=== PATIENT | male | born 1945 | race Caucasian/White ===

== ENCOUNTER → 2018-08-25 13:24 | Outpatient (CLI) | payer MEDICARE, SELFPAY ==
--- NOTE | 2018-08-25 13:34 | VDLE_ITS ---
Reason For Study: edema RIGHT LEFT CFV is compressible, spontaneous, phasic, CFV is compressible, spontaneous, phasic, competent and demonstrates normal competent, and demonstrates normal augmentation. augmentation. FV is compressible, spontaneous, phasic, FV is compressible, spontaneous, phasic, competent and demonstrates normal competent and demonstrates normal augmentation. augmentation. POP V is compressible, spontaneous, phasic, POP V is compressible, spontaneous, phasic, competent and demonstrates normal competent and demonstrates normal augmentation. augmentation. T/P Trunk is compressible. T/P Trunk is compressible. PTV is compressible. PTV is compressible. RT PerV is compressible. LT PerV is compressible. Short segment of the GSV at the knee is GSV is normal. noncompressible. GSV is not dilated. Procedure Exam performed in department. The exam was diagnostic. A preliminary report was called and/or faxed to Dr. Alvarez's office. Interpretation Summary Deep veins of the lower extremities are bilaterally patent and compressible segmentally. There is no evidence of deep vein thrombosis on either side. Valvular competence appears intact within the proximal deep venous systems bilaterally. Subacute thrombosis is noted in a short segment of the right greater saphenous vein at knee level. The left greater saphenous vein appears patent and compressible segmentally. Ordering Physician: Dahlia Alvarez Performed By: David Escobar RVT
== END ==
PROVIDERS: Family Provider Internal Medicine; PCP Internal Medicine; Referring Provider Internal Medicine; Visit Provider Internal Medicine
DX: R60.0 Localized edema (principal)
CPT/HCPCS: 93970

== ENCOUNTER → 2018-08-31 13:38 | Outpatient (CLI) | payer MEDICARE, SELFPAY ==
--- NOTE | 2018-08-31 13:54 | ECHOD_ITS ---
Reason For Study: BILAT LEG EDEMA Procedure This was a 2D Doppler, Color Flow transthoracic echocardiogram. Exam performed in department. Left Ventricle Normal LV size. Left ventricular systolic function is normal. The estimated ejection fraction is 65 %. Stage 1 diastolic dysfunction. No regional wall motion abnormalities noted. Right Ventricle Normal RV size. Normal systolic function. Atria Normal left atrium. Normal right atrium. Mitral Valve Normal mitral valve. Trivial eccentric mitral valve insufficiency. Tricuspid Valve Normal tricuspid valve. Mild tricuspid valve insufficiency. Aortic Valve Normal aortic valve. Mild (1+) eccentric aortic valve insufficiency. Pulmonic Valve Normal pulmonic valve. Great Vessels Normal aortic root. The pulmonary artery is normal size. Normal inferior vena cava. Pericardium/Pleural No pericardial effusion. Medication 22 gauge I.V. with prn adaptor inserted into right arm. Performed a rapid injection of agitated mix of 9 cc saline and 1cc air to assess for atrial septal defect. MMode/2D Measurements & Calculations LVIDd: 4.0 cm IVSd: 0.94 cm Ao root diam: 3.3 cm LVIDs: 2.6 cm LVPWd: 0.82 cm RVDd: 3.7 cm FS: 35.6 % LAV(MOD-bp): 31.6 ml LVAd ap4: 28.9 cm2 SV(MOD-sp4): 55.0 ml LAV(MOD-bp) Indexed: 15.5 ml/m2 EDV(MOD-sp4): 82.4 ml LAV(MOD-sp2): 39.9 ml EDV(sp4-el): 86.7 ml LAV(MOD-sp4): 25.3 ml LVAs ap4: 14.7 cm2 ESV(MOD-sp4): 27.5 ml ESV(sp4-el): 28.6 ml EF(MOD-sp4): 66.7 % EF(sp4-el): 67.0 % SV(sp4-el): 58.1 ml LA A4 area: 11.9 cm2 LA dimension(2D): 3.0 cm RA A4 area: 14.6 cm2 Time Measurements MV dec time: 0.20 sec Doppler Measurements & Calculations MV E max garland: 68.8 cm/sec Lat Peak E' Gar[place]: 9.2 cm/sec Med Peak E' Gar[place]: 9.4 cm/sec MV A max garland: 79.7 cm/sec E/E' lat: 7.4 E/E' med: 7.3 MV E/A: 0.86 Ao V2 max: 124.4 cm/sec AI max garland: 405.5 cm/sec LV V1 max: 118.8 cm/sec Ao max P.2 mmHg AI max P.8 mmHg LV V1 max P.6 mmHg AI dec slope: 185.2 cm/sec2 AI P1/2t: 641.3 msec PA V2 max: 98.6 cm/sec TR max garland: 208.6 cm/sec TR max P.4 mmHg Interpretation Summary Normal LV size. Left ventricular systolic function is normal. The estimated ejection fraction is 65 %. Stage 1 diastolic dysfunction. Mild (1+) eccentric aortic valve insufficiency. The global longitudinal strain = -23.4 % (normal). Ordering Physician: Dahlia Alvarez Referring Physician: Dahlia Alvarez Performed By: Jenna Olivo RDCS
== END ==
PROVIDERS: Family Provider Internal Medicine; PCP Internal Medicine; Referring Provider Internal Medicine; Visit Provider Internal Medicine
DX: R60.0 Localized edema (principal)
CPT/HCPCS: 93306; A4216

== ENCOUNTER → 2018-09-22 11:51 | Outpatient (CLI) | payer MEDICARE, SELFPAY ==
--- NOTE | 2018-09-22 11:53 | RAD_ITS ---
STUDY: X-RAY - RIGHT SHOULDER REASON FOR EXAM: Pain. TECHNIQUE: 4 view(s) of the shoulder. COMPARISON: None. FINDINGS: Normal glenohumeral articulation. There is acromioclavicular arthrosis with a small undersurface osteophyte of the acromium. Normal acromion. Normal humeral head and visualized proximal humerus. The soft tissue structures are unremarkable. Normal visualized pulmonary apex. RAD/Shoulder min 2 Views IMPRESSION: Acromioclavicular arthrosis. Electronically Signed: Octavio Moore MD at 14:46 EST Tel , Service support ,
--- NOTE | 2018-09-22 11:54 | RAD_ITS ---
STUDY: X-RAY - LEFT HIP REASON FOR EXAM: Male, 72 years old. Pain. TECHNIQUE: 2 views of the hip. COMPARISON: None. FINDINGS: Normal femoral head, neck, intertrochanteric region and visualized proximal femur. Normal acetabulum. There is mild articular joint space narrowing. Normal visualized superior and inferior pubic rami and ischial tuberosities. RAD/HIP, UNI W/ Pelvis 2-3 Views IMPRESSION: Degenerative changes of the hip. Electronically Signed: Nadeem Teran, at 9:06 EST , Service support ,
== END ==
PROVIDERS: Family Provider Internal Medicine; PCP Internal Medicine; Referring Provider Internal Medicine; Visit Provider Internal Medicine
DX: M25.511 Pain in right shoulder (principal); M25.552 Pain in left hip
CPT/HCPCS: 73030; 73502